=== PATIENT | male | born 1955 | race Caucasian/White ===

== ENCOUNTER 2018-11-24 21:55 | Emergency (ER) | payer MEDICAID ==
[2018-11-24] MEDS: Morphine 2 MG/ML Syringe IVPUSH ONE ×2 (22:25→22:56)
[2018-11-24] MEDS: GI Cocktail Oral Solution 30 ML PO ONE (22:45)
[2018-11-24] MEDS: HYDROmorphone 2 MG/ML Syringe IVPUSH ONE ×2 (23:06→23:41)
[2018-11-24] MEDS ORDERED: Aspirin 81 MG Tab.Chew ONE (23:35)
[2018-11-24] MEDS ORDERED: Nitroglycerin 0.4 MG Tab.SL ONE (23:35)
[2018-11-24] MEDS ORDERED: GI Cocktail Oral Solution 30 ML ONE (23:35)
[2018-11-24] MEDS ORDERED: Acetaminophen/oxyCODONE 325-5 MG Tab ONE (23:45)
[2018-11-24] MEDS: HYDROmorphone 2 MG/ML Syringe ONE (23:46)
[2018-11-24] MEDS: Ketorolac 30 MG/ML SDV ONE (23:57)
[2018-11-25 00:27] VITALS: BP 157/89
--- NOTE | 2018-11-25 01:11 | ER ---
DATE OF SERVICE: 11/24/2018 HISTORY OF PRESENT ILLNESS: 63-year-old male here with complaints of lower anterior chest wall pain as well as epigastric pain that started about 2 p.m. today. He states it was shortly after he ate a meal, he felt some discomfort, he felt like heartburn initially. He later on had macaroni and cheese for his next meal and the pain flared up significantly after that. The patient does not feel feverish. He has not had any problems with shortness of breath or coughing. He tells me he has been a little bit nauseated, but he has not been vomiting. He rates the pain at 8 or 9/10. He states it is severe pain. The patient has not had any diarrhea or bloody stools. He has not had any recent falls or injuries. PAST MEDICAL HISTORY: Includes obesity, hypertension, dyslipidemia, type 2 diabetes, and gout. OBJECTIVE: GENERAL APPEARANCE: The patient is awake and alert. No respiratory distress, but he is uncomfortable from pain. VITAL SIGNS: Initially revealed blood pressure 144/98, pulse 90, O2 sats are 100%. HEENT: Oral mucous membranes are slightly dry. Tonsils, not enlarged or injected. Pharynx, not inflamed. NECK: Supple. LUNGS: Clear. CARDIAC: Heart sounds distinct without murmurs. ABDOMEN: Tender in the epigastric area , midline mainly. Bowel sounds are present. SKIN: Warm and dry. INITIAL TREATMENT: Four baby aspirin was given to the patient and 1 nitroglycerin. The nitroglycerin did not do anything to reduce his pain, therefore we started an IV , and he was given 2 mg of morphine which just took his pain down a small amount, after this a GI cocktail was given. This did not seem to help the patient much in reducing his pain either. We followed this with 2 more mg of morphine and again his pain only came down a little bit, he rated it at 7/10. He was still uncomfortable. We then gave him Dilaudid 1 mg IV, this brought his pain down to a 5 or 6, and he was resting more comfortably. LABORATORY DATA: Labs today include a CBC showing a white count of 12,001, neutrophils at 80.5, otherwise unremarkable. Comprehensive metabolic panel shows a nonfasting blood sugar at 257, otherwise unremarkable. Troponin is negative. EKG was also obtained initially with a normal sinus rhythm. We then obtained a CT scan of the chest, abdomen, and pelvis. The chest CT is normal. The abdominal and pelvic CT shows a 1.4 cm gallbladder within the neck of the gallbladder. No other acute findings. DIAGNOSIS: Gallstone with gallbladder attack. TREATMENT PLAN: Toradol was then given 30 mg IV. At this point, the patient states his pain was maybe a 5, possibly little less. He is feeling a little more comfortable. He states he is still having pain, but it is much better. At this point, we will discharge the patient. He will be given Percocet to take as needed 1 tablet every 4 hours p.r.n., and he is to follow up tomorrow in the clinic for further evaluation and an ultrasound. SABRINA/NATHAN /[id number] MTDD
--- NOTE | 2018-11-25 11:11 | CT ---
DATE OF SERVICE: 11/24/18 CLINICAL HISTORY: Chest and Abd pain - acute. UNENHANCED CHEST CT: Multislice acquisition through the chest without IV contrast was performed. No priors. The lungs are clear. No areas of consolidation. No masses. No pneumothorax. No pleural effusions. The heart size is normal. There are minimal coronary artery calcifications. No pericardial effusion. No evidence of aortic aneurysm. No hilar or mediastinal adenopathy. There is degenerative disc disease at multiple levels in the thoracic spine. IMPRESSION: No acute abnormalities. UNENHANCED ABDOMEN AND PELVIC CT: Multislice acquisition through the abdomen and pelvis without IV or oral contrast was performed. No priors. The unenhanced liver appears normal. No focal hepatic lesions. There is a 13 mm gallstone noted in the region of the neck of the gallbladder. No gallbladder wall thickening. No pericholecystic fluid. The spleen, pancreas, and right and left adrenals appear normal. The right and left kidneys appear normal. No nephrocalcinosis or nephrolithiasis. No hydronephrosis or hydroureter. The bladder is fluid-filled and appears normal. The prostate is mildly enlarged. There are calcifications within the prostate consistent with chronic prostatitis. The appendix is not dilated. No evidence of appendicitis. No free air. No free fluid. No dilated loops of bowel. No adenopathy. No aortic aneurysm. There is an umbilical hernia containing fat. IMPRESSION: Cholelithiasis. No acute abnormalities. Other findings as discussed above. [id number] [facility]
== END 2018-11-24 23:49 | disposition home or self-care (01) ==
LOC: LB.ED 21:55
DX: K80.20 Calculus of gallbladder without cholecystitis without obstruction (principal); I10 Essential (primary) hypertension; E11.9 Type 2 diabetes mellitus without complications; E66.9 Obesity, unspecified; M10.9 Gout, unspecified
CPT/HCPCS: 36415; 71250; 74176; 80053; 83690; 84484; 85025; 93005; 96374; 96375; 96376; 99285-25; A9270-GY; J1170; J2270

== ENCOUNTER 2023-05-29 10:45 | Emergency (ER) | payer MEDICARE ==
[2023-05-29 11:06] VITALS: BP 127/87; PULSE 77
[2023-05-29] MEDS ORDERED: Lidocaine 1% 5 ML VIAL INFILT ONE (11:38)
[2023-05-29] MEDS: Lidocaine 1% with EPINEPHrine 1:100,000 20 ML MDV INJECT ONE (11:43)
[2023-05-29] MEDS: Bacitracin Oint 1 GM U/D Packet TOP ONE (11:50)
== END 2023-05-29 11:58 | disposition home or self-care (01) ==
LOC: LB.ED 10:45
DX: S61.412A Laceration without foreign body of left hand, initial encounter (principal); I10 Essential (primary) hypertension; E78.00 Pure hypercholesterolemia, unspecified; E11.9 Type 2 diabetes mellitus without complications; Z79.899 Other long term (current) drug therapy; Z79.84 Long term (current) use of oral hypoglycemic drugs; W26.0XXA Contact with knife, initial encounter
CPT/HCPCS: 12001; 99282; 99283